=== PATIENT | male | born 1975 | race African-American/Black ===

== ENCOUNTER 2017-08-08 08:32 | Emergency (ER) | payer SELFPAY ==
[~2017-08-08] VITALS: Ht 185.4 cm; Wt 68.0 kg
[2017-08-08 08:43] VITALS: BP 130/76
--- NOTE | 2017-08-08 09:04 | PHYS DOC ---
Adult General Chief Complaint Chief Complaint: HAND PROBLEM HPI HPI Patient is a 41 year old male that presents the ED complaining of right wrist/ hand injury 2 days ago. 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 Patient states device kicked back and injured his right wrist and hand. Describes the pain as sharp. Rates the pain as 6 out of 10. Denies laceration, fever, nausea/vomiting, inability to flex wrist/hand, head or neck injury. Review of Systems Review of Systems Constitutional: Denies fever or chills [] Eyes: Denies change in visual acuity, redness, or eye pain [] HENT: Denies nasal congestion or sore throat [] Respiratory: Denies cough or shortness of breath [] Cardiovascular: No additional information not addressed in HPI [] GI: Denies abdominal pain, nausea, vomiting, bloody stools or diarrhea [] : Denies dysuria or hematuria [] Musculoskeletal: Complains of right wrist/hand injury. Denies back pain.] Integument: Denies rash or skin lesions [] Neurologic: Denies headache, focal weakness or sensory changes [] Endocrine: Denies polyuria or polydipsia [] Allergies Allergies Allergies Coded Allergies Type Severity Reaction Last Updated Verified No Known Drug Allergies 08/08/17 No Physical Exam Physical Exam Constitutional: Well developed, well nourished, no acute distress, non-toxic appearance. [] HENT: Normocephalic, atraumatic, bilateral external ears normal, oropharynx moist, no oral exudates, nose normal. [] Eyes: PERRLA, EOMI, conjunctiva normal, no discharge. [] Neck: Normal range of motion, no tenderness, supple, no stridor. [] Cardiovascular:Heart rate regular rhythm, no murmur [] Lungs & Thorax: Bilateral breath sounds clear to auscultation [] Abdomen: Bowel sounds normal, soft, no tenderness, no masses, no pulsatile masses. [] Skin: Warm, dry, no erythema, no rash. [] Back: No tenderness, no CVA tenderness. [] Extremities: MILD RIGHT MEDIAL WRIST TENDON TENDERNESS. FROM. MILD MEDIAL HAND TENDERNESS. NO SWELLING., no cyanosis, no clubbing, ROM intact, no edema. [] Neurologic: Alert and oriented X 3, normal motor function, normal sensory function, no focal deficits noted. [] Psychologic: Affect normal, judgement normal, mood normal. [] Current Patient Data Vital Signs Vital Signs Date Time Temp Pulse Resp B/P (MAP) Pulse Ox O2 Delivery O2 Flow Rate FiO2 08/08/17 08:43 97.7 70 16 130/76 (94) 97 Room Air 97.7 EKG EKG [] Radiology/Procedures Radiology/Procedures PROCEDURE: HAND RIGHT 3V; WRIST 3V RIGHT Right wrist, 3 views, 08/08/2017: History: Injury, pain No fracture or dislocation is identified. There are several small degenerative type cysts in the carpal bones. There is minimal sclerotic change at the radiocarpal articulation. IMPRESSION: 1. Mild degenerative change. 2. No acute bony abnormality is detected. Right hand, 3 views, 08/08/2017: No fracture or dislocation is identified. The soft tissues are unremarkable. IMPRESSION: No acute bony abnormality is detected. [] Course & Med Decision Making Course & Med Decision Making Pertinent Labs and Imaging studies reviewed. (See chart for details) [] Dragon Disclaimer Dragon Disclaimer This electronic medical record was generated, in whole or in part, using a voice recognition dictation system. Departure Departure Impression: Primary Impression: Tendonitis Disposition: 01 HOME, SELF-CARE Condition: STABLE Referrals: MATTHEW WYMAN MD Patient Instructions: Wrist Pain Scripts Tramadol Hcl (TRAMADOL HCL) 50 Mg Tablet 1 TAB PO TID, #10 TAB Prov: JANET GUZMAN 08/08/17 JANET GUZMAN Aug 08, 2017 09:04
--- NOTE | 2017-08-08 09:42 | RAD ---
Right wrist, 3 views, 08/08/2017: History: Injury, pain No fracture or dislocation is identified. There are several small degenerative type cysts in the carpal bones. There is minimal sclerotic change at the radiocarpal articulation. IMPRESSION: 1. Mild degenerative change. 2. No acute bony abnormality is detected. Right hand, 3 views, 08/08/2017: No fracture or dislocation is identified. The soft tissues are unremarkable. IMPRESSION: No acute bony abnormality is detected.
[2017-08-08] MEDS ORDERED: TRAM50TA PO (09:53)
== END 2017-08-08 10:00 | disposition home or self-care (01) ==
LOC: ER 08:32
DX: M77.9 Enthesopathy, unspecified (principal)
CPT/HCPCS: 29125; 73110; 73130; 99284-25

== ENCOUNTER 2020-06-24 16:14 | Emergency (ER) | payer SELFPAY ==
[~2020-06-24] VITALS: Ht 185.4 cm; Wt 65.9 kg
[~2020-06-24 16:14] MED LIST: TRAM50TA PO
[2020-06-24 18:15] VITALS: BP 127/84
[2020-06-24] MEDS ORDERED: SMZ/TMP 800/160MG TABLET. PO ONE (18:45)
[2020-06-24] MEDS ORDERED: LIDOCAINE WITH 8.4% SOD BICARB 3 ML DISP.SYRIN. INJ ONE (18:45)
--- NOTE | 2020-06-24 18:54 | PHYS DOC ---
Past Medical History Past Medical History: No Pertinent History Past Surgical History: No Surgical History Smoking Status: Current Every Day Smoker Alcohol Use: Occasionally Drug Use: None General Adult EDM: Chief Complaint: INSECT BITE HPI: HPI: Patient is a 44 year old male who presents with an abscess on the left buttocks that is had for 2 weeks. Patient reports using [id number] topical antibiotics with no improvement. Denies any fever. He believes the abscess came from an insect bite specifically spider though he never saw it bite him Review of Systems: Review of Systems: Constitutional: Denies fever or chills. [] Musculoskeletal: Denies back pain or joint pain. [] Integument: Reports insect bite/abscess to the left buttock Neurologic: Denies headache, focal weakness or sensory changes. [] Lymphatic: Denies swollen glands. [] Psychiatric: Denies depression or anxiety. [] Heart Score: Risk Factors: Risk Factors: DM, Current or recent (<one month) smoker, HTN, HLP, family history of CAD, obesity. Risk Scores: Score 0 - 3: 2.5% MACE over next 6 weeks - Discharge Home Score 4 - 6: 20.3% MACE over next 6 weeks - Admit for Clinical Observation Score 7 - 10: 72.7% MACE over next 6 weeks - Early Invasive Strategies Current Medications: Current Medications Medications (Trade) Dose Ordered Sig/Kristie Start Time Stop Time Status Last Admin Dose Admin Lidocaine HCl (Buffered Lidocaine 1%) 3 ml 1X ONCE 06/24/20 18:45 06/24/20 18:46 DC Trimethoprim/ Sulfamethoxazole (Bactrim Ds) 1 tab 1X ONCE 06/24/20 18:45 06/24/20 18:46 DC Allergies: Allergies: Allergies Coded Allergies Type Severity Reaction Last Updated Verified No Known Drug Allergies 08/08/17 No Physical Exam: PE: Constitutional: Well developed, well nourished, no acute distress, non-toxic appearance. [] Skin: Left upper buttock with an open wound approximately 2 x 2 cm with surrounding stress cellulitis. There is no drainage to this region. The region appears to be an abscess that opened up. Back: No tenderness, no CVA tenderness. [] Extremities: No tenderness, no cyanosis, no clubbing, ROM intact, no edema. [] Neurologic: Alert and oriented X 3, normal motor function, normal sensory function, no focal deficits noted. [] Psychologic: Affect normal, judgement normal, mood normal. [] Current Patient Data: Vital Signs: Vital Signs Date Time Temp Pulse Resp B/P (MAP) Pulse Ox O2 Delivery O2 Flow Rate FiO2 06/24/20 18:15 98.3 72 127/84 (98) 100 98.3 06/24/20 17:52 18 Room Air EKG: EKG: [] Radiology/Procedures: Radiology/Procedures: [] Course & Med Decision Making: Course & Med Decision Making Pertinent Labs and Imaging studies reviewed. (See chart for details) This is a 44-year-old male patient with an abscess that has already opened up on the left buttock but still has some cellulitis. Patient will be put on Bactrim for 10 days. Tetanus is updated in the ED. Provided return precautions. Follow-up with primary care doctor in 1 to 2 weeks. Andra Disclaimer: Dragboone Disclaimer: This electronic medical record was generated, in whole or in part, using a voice recognition dictation system. Departure Departure Impression: Primary Impression: Cellulitis and abscess of buttock Disposition: 01 HOME, SELF-CARE Condition: STABLE Referrals: NO PCP (PCP) Follow-up with your own doctor in 2 weeks LIZETH KERR MD follow up in 2 weeks Patient Instructions: Abscess, Cellulitis, [id number] Additional Instructions: You have an abscess on the left buttock that has opened up and drained. Continue doing your home regimen including soaking in warm water with Epsom salt. Take the prescribed antibiotics until completed. Follow-up with your own doctor in 2 weeks Scripts Sulfamethoxazole/Trimethoprim (BACTRIM 400-80 MG TABLET) 1 Each Tablet 1 TAB PO BID for 10 Days, #20 TAB 0 Refills Prov: CINDY OSORIO APRN 06/24/20 Justicifation of Admission Dx: Justifications for Admission: Justification of Admission Dx: N/A CINDY OSORIO APRN Jun 24, 2020 18:54
[2020-06-24] MEDS ORDERED: SULF1TAB23 PO (18:58)
[2020-06-24] MEDS ORDERED: TETANUS AND DIPHTHERIA TOX/PF 0.5 ML DISP.SYRIN. VAX IM ONE (19:00)
== END 2020-06-24 19:44 | disposition home or self-care (01) ==
LOC: ER 16:14
DX: L03.317 Cellulitis of buttock (principal); F17.200 Nicotine dependence, unspecified, uncomplicated
CPT/HCPCS: 90471; 90714; 99283